=== PATIENT | male | born 1975 | race Caucasian/White ===

== ENCOUNTER → 2020-08-20 | Outpatient (CLI) | payer OTHER ==
--- NOTE | 2020-08-20 15:09 | Diagnostic Imaging Report ---
EXAMINATION: Right lower extremity MRI from 08/20/2020. TECHNIQUE: Multiplanar, multisequence non contrast-enhanced MRI of the right lower extremity was accomplished. INDICATION: Injury while wrestling in July 2020. Pain predominantly in the bottom aspect of the heel runs across the foot. Mid and hindfoot pain. FINDINGS: There is abnormal signal intensity within the medial talar dome suspicious for developing osteochondral defect just under a centimeter in size. An actual osseous fragment is not appreciated. The remaining osseous structures are unremarkable. The calcaneofibular ligament is intact. Deltoid ligament intact. Anterior and posterior talofibular ligaments are intact. The anterior and posterior inferior tibiofibular ligaments are intact. There is subcutaneous edema along the medial aspect of the ankle perhaps reactive. The extensor and flexor tendons are intact. The peroneus brevis tendon is intact. There is focal abnormal signal intensity within the intrasubstance of the peroneus longus tendon likely an intrasubstance tear. No discontinuity appreciated. The Achilles tendon is intact. There is abnormal signal intensity throughout the plantar aspect of the hindfoot throughout the plantar fascia. Findings consistent with plantar fasciitis with a small partial tear suspected but no complete discontinuity or retraction appreciated. IMPRESSION: 1. Findings consistent with plantar fasciitis with a small partial tear not excluded. No discontinuity. Remaining tendons intact other than a small intrasubstance tear of the peroneus longus tendon. 2. Ligaments intact. 3. Possible small developing osteochondral defect along the medial talar dome. Dictated by: Dictated on workstation # [id number]
== END ==
LOC: RAD 13:15
PROVIDERS: ATTEND Nurse Practitioner Family
DX: M72.2 Plantar fascial fibromatosis (principal)